=== PATIENT | male | born 1995 | race African-American/Black ===

== ENCOUNTER 2018-05-11 15:07 | Emergency (ER) | payer MEDICAID, OTHER ==
[~2018-05-11] VITALS: Ht 188 cm; Wt 81.6 kg
[2018-05-11 15:21] VITALS: BP 128/48
== END 2018-05-11 16:41 | disposition home or self-care (01) ==
LOC: ER 15:13
DX: T23.251A Burn of second degree of right palm, initial encounter (principal); X08.8XXA Exposure to other specified smoke, fire and flames, initial encounter; Y93.89 Activity, other specified; Y99.8 Other external cause status; Y92.89 Other specified places as the place of occurrence of the external cause